=== PATIENT | female | born 1975 | race Caucasian/White ===

== ENCOUNTER 2018-03-20 20:34 | Emergency (ER) | payer BC ==
--- NOTE | 2018-03-20 20:46 | EDM.PDOC ---
ED HPI GENERAL MEDICAL PROBLEM - General Chief Complaint: General Stated Complaint: migrane Time Seen by Provider: 03/20/18 20:36 Source of Information: Reports: Patient History Limitations: Reports: No Limitations - History of Present Illness INITIAL COMMENTS - FREE TEXT/NARRATIVE: 42 YO WF presents to ER complaining of headache x 1 week. Pt describes her headache as 8/10 with pain behind both eyes right greater than left. Pt reports her headache was mild and she was able to tolerate with tylenol until last night when it became more severe. Pt with history of migraine headaches but last BUENO was 5 years ago. Pt reports she began vomiting today x 1 prompting her to come to ER. Pt denies any fever/chills, no recent illness, no neck pain. Pt denies any recent head injury or global headache. 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 - Related Data Allergies Allergy/AdvReac Type Severity Reaction Status Date / Time No Known Drug Allergies Allergy Other Verified 03/21/18 01:14 Home Meds: Home Meds Multivitamin [One Daily Multivitamin] 1 each PO DAILY 03/21/18 [History] Past Medical History - Past Health History Medical/Surgical History: Denies Medical/Surgical History HEENT History: Reports: None Cardiovascular History: Reports: None Respiratory History: Reports: None Gastrointestinal History: Reports: None Genitourinary History: Reports: Pyelonephritis, Renal Calculus [employer] History: Reports: Polycystic Ovaries, Musculoskeletal History: Reports: Back Pain, Chronic Neurological History: Reports: None Psychiatric History: Reports: Anxiety Endocrine/Metabolic History: Reports: Other (See Below) Other Endocrine/Metabolic History: PCOD Hematologic History: Reports: None Immunologic History: Reports: None Oncologic (Cancer) History: Reports: None Dermatologic History: Reports: Other (See Below) Other Dermatologic History: Rosacia - Infectious Disease History Infectious Disease History: Reports: Chicken Pox - Past Surgical History Head Surgeries/Procedures: Reports: None ED ROS GENERAL - Review of Systems Review Of Systems: See Below Constitutional: Reports: No Symptoms HEENT: Reports: No Symptoms Respiratory: Reports: No Symptoms Cardiovascular: Reports: No Symptoms Endocrine: Reports: No Symptoms GI/Abdominal: Reports: Vomiting : Reports: No Symptoms Musculoskeletal: Reports: No Symptoms Skin: Reports: No Symptoms Neurological: Reports: Headache Psychiatric: Reports: No Symptoms Hematologic/Lymphatic: Reports: No Symptoms Immunologic: Reports: No Symptoms ED EXAM, GENERAL - Physical Exam Exam: See Below Exam Limited By: No Limitations General Appearance: Alert, WD/WN, Mild Distress Eye Exam: Bilateral Eye: EOMI, PERRL Throat/Mouth: Normal Inspection, Normal Lips, Normal Teeth, Normal Gums, Normal Oropharynx, Normal Voice, No Airway Compromise Head: Atraumatic, Normocephalic Neck: Normal Inspection, Supple, Non-Tender, Full Range of Motion Respiratory/Chest: No Respiratory Distress, Lungs Clear, Normal Breath Sounds, No Accessory Muscle Use, Chest Non-Tender Cardiovascular: Normal Peripheral Pulses, Regular Rate, Rhythm, No Edema, No Gallop, No JVD, No Murmur, No Rub GI/Abdominal: Normal Bowel Sounds, Soft, Non-Tender, No Organomegaly, No Distention, No Abnormal Bruit, No Mass Back Exam: Normal Inspection, Full Range of Motion, NT Extremities: Normal Inspection, Normal Range of Motion, Non-Tender, Normal Capillary Refill, No Pedal Edema Neurological: Alert, Oriented, CN II-XII Intact, Normal Cognition, Normal Gait, Normal Reflexes, No Motor/Sensory Deficits Psychiatric: Normal Affect, Normal Mood Skin Exam: Warm, Dry, Intact, Normal Color, No Rash Lymphatic: No Adenopathy Course - Vital Signs Last Recorded V/S: Last Vital Signs Temp 36.4 C 03/20/18 20:40 Pulse 78 03/20/18 22:50 Resp 18 03/20/18 22:50 BP 122/68 03/20/18 22:50 Pulse Ox 98 03/20/18 22:50 - Orders/Labs/Meds Meds: Medications Discontinued Medications Generic Name Dose Route Start Last Admin Trade Name Freq PRN Reason Stop Dose Admin Diphenhydramine HCl 50 mg 03/20/18 20:47 03/20/18 21:15 Benadryl IVPUSH 03/20/18 20:48 50 mg ONETIME ONE Administration Hydromorphone HCl 1 mg 03/20/18 21:52 03/20/18 21:59 Dilaudid IVPUSH 03/20/18 21:53 1 mg ONETIME ONE Administration Sodium Chloride 1,000 mls @ 999 mls/hr 03/20/18 20:47 03/20/18 21:53 Normal Saline IV 03/20/18 21:47 999 mls/hr .BOLUS ONE Administration Ketorolac Tromethamine 30 mg 03/20/18 20:47 03/20/18 21:20 Toradol IVPUSH 03/20/18 20:48 30 mg ONETIME ONE Administration Ondansetron HCl 4 mg 03/20/18 20:47 03/20/18 21:30 Zofran IVPUSH 03/20/18 20:48 4 mg ONETIME ONE Administration Sodium Chloride 5 ml 03/20/18 20:47 03/20/18 21:50 Syrex Flush FLUSH 5 ml Q8HR PRN Administration Keep Vein Open Departure - Departure Time of Disposition: 21:30 Disposition: Home, Self-Care 01 Condition: Good Clinical Impression: Headache Qualifiers: Headache type: unspecified Headache chronicity pattern: acute headache Intractability: intractable Qualified Code(s): R51 - Headache - Discharge Information Instructions: General Headache Without Cause, [id number] Referrals: Candice Macario PA-C [Primary Care Provider] - Forms: ED Department Discharge Additional Instructions: 1. discharge home 2. follow up with PCP this week for further management 3. return to ER for worsening symptoms - Assessment/Plan Assessment:: 1. frontal headache 2. vomiting Plan: 1. discharge home 2. follow up with PCP this week for further management 3. return to ER for worsening symptoms
[2018-03-20] MEDS ORDERED: Ondansetron 4 MG/2 ML SDV IVPUSH ONE (20:47)
[2018-03-20] MEDS ORDERED: diphenhydrAMINE 50 MG/ML SDV IVPUSH ONE (20:47)
[2018-03-20] MEDS ORDERED: Sodium Chloride 0.9% 5 ML Syringe FLUSH PRN (20:47)
[2018-03-20] MEDS ORDERED: Sodium Chloride 0.9% 1,000 ML IV ONE (20:47)
[2018-03-20] MEDS ORDERED: Ketorolac 30 MG/ML SDV IVPUSH ONE (20:47)
[2018-03-20] MEDS ORDERED: HYDROmorphone 1 MG/ML Syringe IVPUSH ONE (21:52)
[2018-03-21 01:16] VITALS: BP 122/68
== END 2018-03-20 23:05 | disposition home or self-care (01) ==
LOC: KA.ED 20:34
DX: R51 Headache (principal); R11.10 Vomiting, unspecified
CPT/HCPCS: 96361; 96374; 96375; 99283; J1170; J1200; J1885; J2405; J7030